=== PATIENT | female | born 1965 | race Caucasian/White ===

== ENCOUNTER 2020-12-11 21:26 | Inpatient (IN) | payer OTHER ==
[~2020-12-11] VITALS: Ht 167.6 cm; Wt 81.6 kg
[~2020-12-11 21:26] MED LIST: ADULT LOW DOSE81 MG PO; COREG 3.125M3.125 MG PO; HUMALOG 10100 UNITS/ SC; LANTUS INS100 UTS/M1 SC; LIPITOR80 MG PO; NITROFURANTOIN50 MG PO; NORCO 7.5-3251 EACH PO; NORVASC5 MG PO; NOVOLIN 70100 UNIT/1 SQ; PLAVIX75 MG PO; PROTONIX20 MG PO; PROZAC20 MG PO
[2020-12-11 22:03] LABS: HEMOGLOBIN 13.5 gm/dl (12.3-15.3); RED BLOOD COUNT 4.48 M/UL (4.00-5.10); WHITE BLOOD COUNT 14.5 K/UL (4.5-11.0)
[2020-12-11 22:20] LABS: BUN/CREATININE RATIO 27 (0-10)
[2020-12-12] MEDS ORDERED: LAMICTAL TAB 2525 MG PO (08:59)
[2020-12-12] MEDS ORDERED: LOW DOSE ASPIRI81 MG PO (09:05)
[2020-12-12] MEDS ORDERED: HUMALOG100 UNIT/1 SQ (09:10)
[2020-12-12] MEDS ORDERED: HYDROCODONE-AC1 EAC1 PO (09:12)
[2020-12-12] MEDS ORDERED: LANTUS100 UNIT/1 SQ (09:13)
[2020-12-12] MEDS ORDERED: MELATONIN3 MG PO (09:14)
[2020-12-12] MEDS ORDERED: NITROSTAT0.4 MG SL (09:15)
[2020-12-12] MEDS ORDERED: MILK OF MAGNESI30 ML PO (09:15)
[2020-12-13 06:30] LABS: HEMOGLOBIN 11.6 gm/dl (12.3-15.3)
[2020-12-13 06:34] LABS: RED BLOOD COUNT 3.93 M/UL (4.00-5.10); WHITE BLOOD COUNT 10.6 K/UL (4.5-11.0)
[2020-12-13 06:39] LABS: BUN/CREATININE RATIO 26 (0-10)
[2020-12-14 06:02] LABS: HEMOGLOBIN 11.6 gm/dl (12.3-15.3); RED BLOOD COUNT 3.9 M/UL (4.00-5.10)
[2020-12-14 06:38] LABS: BUN/CREATININE RATIO 31 (0-10)
[2020-12-15 05:05] LABS: HEMOGLOBIN 10.1 gm/dl (12.3-15.3); RED BLOOD COUNT 3.46 M/UL (4.00-5.10)
[2020-12-15 05:29] LABS: BUN/CREATININE RATIO 39 (0-10)
[2020-12-16 05:10] LABS: HEMOGLOBIN 9.1 gm/dl (12.3-15.3); RED BLOOD COUNT 3.2 M/UL (4.00-5.10); WHITE BLOOD COUNT 10.8 K/UL (4.5-11.0)
[2020-12-16 05:16] LABS: BUN/CREATININE RATIO 42 (0-10)
[2020-12-17 05:48] LABS: HEMOGLOBIN 8.8 gm/dl (12.3-15.3); RED BLOOD COUNT 2.98 M/UL (4.00-5.10)
[2020-12-17 06:05] LABS: BUN/CREATININE RATIO 38 (0-10)
[2020-12-18 03:10] LABS: HEMOGLOBIN 8.8 gm/dl (12.3-15.3); WHITE BLOOD COUNT 10.5 K/UL (4.5-11.0)
[2020-12-18 03:34] LABS: BUN/CREATININE RATIO 31 (0-10)
[2020-12-18] MEDS ORDERED: VITAMIN D325 MCG PO (16:36)
[2020-12-18] MEDS ORDERED: HUMALOG 10100 UNITS/ SC ×2 (16:36)
[2020-12-18] MEDS ORDERED: ATORVASTATIN CA20 MG PO (16:36)
[2020-12-18] MEDS ORDERED: ENOXAPARIN40 MG/0.4 SC ×2 (16:36→16:44)
[2020-12-18] MEDS ORDERED: STIMULANT LAXA1 EACH PO (16:36)
[2020-12-18] MEDS ORDERED: HYDROCODON-ACE1 EAC2 PO (16:44)
[2020-12-19 04:46] LABS: HEMOGLOBIN 9.2 gm/dl (12.3-15.3); RED BLOOD COUNT 3.12 M/UL (4.00-5.10); WHITE BLOOD COUNT 10.4 K/UL (4.5-11.0)
[2020-12-19 05:13] LABS: BUN/CREATININE RATIO 25 (0-10)
--- NOTE | 2020-12-19 12:54 | NUR ---
12/19/20 1255 REPORT CALLED TO MONICA PAUL RN AT [facility]
== END 2020-12-19 16:40 | DRG 480 ==
LOC: ER1 21:26 → M/S 12-12 01:49 → CDU 12-12 01:49 → M/S 12-12 10:33
PROVIDERS: Internal Medicine; Orthopaedic Surgery; Physician Assistant; ADMIT Internal Medicine
PROC: B24BZZZ Ultrasonography of Heart with Aorta (ICD-10-PCS; 2020-12-12)
PROC: 0QS606Z Reposition Right Upper Femur with Intramedullary Internal Fixation Device, Open Approach (ICD-10-PCS; principal; 2020-12-14 14:30)
DX: S72.141A Displaced intertrochanteric fracture of right femur, initial encounter for closed fracture (principal); G92 Toxic encephalopathy; D62 Acute posthemorrhagic anemia; I50.32 Chronic diastolic (congestive) heart failure; E44.0 Moderate protein-calorie malnutrition; Z20.822 Contact with and (suspected) exposure to COVID-19; W01.0XXA Fall on same level from slipping, tripping and stumbling without subsequent striking against object, initial encounter; E87.6 Hypokalemia; E11.40 Type 2 diabetes mellitus with diabetic neuropathy, unspecified; F03.90 Unspecified dementia, unspecified severity, without behavioral disturbance, psychotic disturbance, mood disturbance, and anxiety; F31.9 Bipolar disorder, unspecified; E11.51 Type 2 diabetes mellitus with diabetic peripheral angiopathy without gangrene; I11.0 Hypertensive heart disease with heart failure; D72.828 Other elevated white blood cell count; E86.0 Dehydration; R77.8 Other specified abnormalities of plasma proteins; E78.5 Hyperlipidemia, unspecified; I25.10 Atherosclerotic heart disease of native coronary artery without angina pectoris; Z95.1 Presence of aortocoronary bypass graft; Y92.129 Unspecified place in nursing home as the place of occurrence of the external cause; Y93.9 Activity, unspecified; Z86.73 Personal history of transient ischemic attack (TIA), and cerebral infarction without residual deficits; Z90.49 Acquired absence of other specified parts of digestive tract; Z89.429 Acquired absence of other toe(s), unspecified side; Z82.49 Family history of ischemic heart disease and other diseases of the circulatory system; Z68.29 Body mass index [BMI] 29.0-29.9, adult; Z98.51 Tubal ligation status; Z79.02 Long term (current) use of antithrombotics/antiplatelets; Z79.82 Long term (current) use of aspirin; Z79.4 Long term (current) use of insulin; Z79.899 Other long term (current) drug therapy; Z95.0 Presence of cardiac pacemaker; Z88.8 Allergy status to other drugs, medicaments and biological substances; Z99.3 Dependence on wheelchair
CPT/HCPCS: ECHO; 36415; 51702; 71045; 72131; 72192; 73502; 73552; 76000; 80048; 80053; 80307; 81001; 82550; 82553; 82962; 83036; 84439; 84443; 84484; 84550; 85025; 85027; 86850; 86900; 86901; 87086; 93005; 93306; 94760; 96372; 96374; 96375; 96376; 97110-GP-CQ; 97116-GP-CQ; 97162; 97166; 97530-GP-CQ; 97535; 99285; C1713; J0690; J1100; J1644; J1650; J2001; J2250; J2270; J2405; J2704; J2710; J3010; J7030; J7040; J7120; U0002